=== PATIENT | female | born 1955 | race Caucasian/White ===

== ENCOUNTER → 2017-07-15 | Outpatient (CLI) | payer OTHER ==
[~2017-07-15] MED LIST: BUPR100 PO; Prinivil5 MG PO
== END | disposition home or self-care (01) ==
LOC: PLD 07:53 → LAB SHORT 07:53
DX: C44.519 Basal cell carcinoma of skin of other part of trunk (principal)
CPT/HCPCS: 88305

== ENCOUNTER → 2017-12-04 | Outpatient (CLI) | payer OTHER | LOC: LAB SHORT 17:15 → LAB EV 17:15 | DX: R31.9 Hematuria, unspecified (principal) | CPT/HCPCS: 87086 ==

== ENCOUNTER 2018-04-29 11:18 | Emergency (ER) | payer OTHER ==
[~2018-04-29] VITALS: Ht 165.1 cm; Wt 84.4 kg
[2018-04-29] MEDS ORDERED: BUPR100 PO (14:32)
[2018-04-29] MEDS ORDERED: Prinivil5 MG PO (14:32)
== END 2018-04-29 14:44 | disposition home or self-care (01) ==
LOC: ER 11:18
DX: F32.9 Major depressive disorder, single episode, unspecified (principal); I10 Essential (primary) hypertension; Z79.899 Other long term (current) drug therapy; Z87.891 Personal history of nicotine dependence
CPT/HCPCS: 99283

== ENCOUNTER 2018-06-30 03:07 | Emergency (ER) | payer OTHER ==
[~2018-06-30] VITALS: Ht 167.6 cm; Wt 81.7 kg
[2018-06-30 03:54] LABS: BASOPHILS ABSOLUTE AUTO 0.06 K/mm3 (0.00-0.23); BASOPHILS PERCENT AUTO 1 % (0-2); EOSINOPHILS ABSOLUTE AUTO 0.19 K/mm3 (0.00-0.68); EOSINOPHILS PERCENT AUTO 3 % (0-6); Hemoglobin 14.8 g/dL (11.5-16.0); IMMATURE GRAN ABSOLUTE AUTO 0.02 K/mm3 (0.00-0.10); IMMATURE GRAN PERCENT AUTO 0 % (0-1); LYMPHOCYTES ABSOLUTE AUTO 1.64 K/mm3 (0.84-5.20); LYMPHOCYTES PERCENT AUTO 22 % (21-46); MONOCYTES ABSOLUTE AUTO 0.66 K/mm3 (0.16-1.47); MONOCYTES PERCENT AUTO 9 % (4-13); Mean Corpuscular HGB 31.3 pg (26.0-34.0); Mean Corpuscular HGB Conc 32.2 g/dL (31.5-36.5); Mean Corpuscular Volume 97 fL (80-100); Mean Platelet Volume 9.6 fL (9.1-12.4); NEUTROPHILS ABSOLUTE AUTO 4.94 K/mm3 (1.96-9.15); NEUTROPHILS PERCENT AUTO 66 % (41-73); Platelet Count 208 K/mm3 (150-400); RDW Coefficient Variation 12.2 % (11.7-14.2); RDW Standard Deviation 44.2 fL (35.1-46.3); Red Blood Cell Count 4.73 M/mm3 (3.80-5.20); White Blood Cell Count 7.51 K/mm3 (4.00-11.30)
[2018-06-30 04:11] LABS: Influenza A Negative (NEGATIVE); Influenza B Negative (NEGATIVE)
[2018-06-30 04:14] LABS: Alanine Aminotransfer (ALT/SGP 36 U/L (12-78); Albumin, Blood 3.8 g/dL (3.4-5.0); Albumin/Globulin Ratio 1.1 (0.8-1.8); Alk Phos 86 U/L (50-136); Anion Gap 6 mmol/L (6-16); Aspartate Aminotrans (AST/SGOT 29 U/L (12-37); Bilirubin, Total 0.5 mg/dL (0.1-1.0); Blood Urea Nitrogen 11 mg/dL (8-24); Bun/Creatinine Ratio 15.3 (12.0-20.0); CO2, Blood 28 mmol/L (21-32); Calcium, Blood 8.7 mg/dL (8.5-10.1); Chloride, Blood 106 mmol/L (98-108); Creatinine, Blood 0.72 mg/dL (0.40-1.00); Globulin, Blood 3.4 g/dL (2.2-4.0); Glomerular Filtration Rate >60 (60-); Glucose, Blood 109 mg/dL (70-99); Potassium, Blood 4.3 mmol/L (3.5-5.5); Sodium, Blood 140 mmol/L (136-145); Total Protein, Blood 7.2 g/dL (6.4-8.2); Troponin I <0.015 ng/mL (0.000-0.040)
[2018-06-30] MEDS ORDERED: Prednisone20 MG PO (04:51)
== END 2018-06-30 05:05 | disposition home or self-care (01) ==
LOC: ER 03:07
PROVIDERS: Emergency Medicine
DX: J44.1 Chronic obstructive pulmonary disease with (acute) exacerbation (principal); F17.210 Nicotine dependence, cigarettes, uncomplicated; Z79.899 Other long term (current) drug therapy
CPT/HCPCS: 36415; 71046; 80053; 84484; 85025; 87804; 93005; 93010; 96361; 96374; 99284-25; J2930; J7030

== ENCOUNTER 2018-09-14 12:01 | Emergency (ER) | payer OTHER ==
[~2018-09-14] VITALS: Ht 167.6 cm; Wt 81.7 kg
[~2018-09-14 12:01] MED LIST changes: +Prednisone20 MG PO
[2018-09-14] MEDS ORDERED: Cheratussin AC118 ML PO (13:31)
[2018-09-14] MEDS ORDERED: Zithromax250 MG PO (13:31)
[2018-09-14] MEDS ORDERED: ALBU90OI INH (13:31)
[2018-09-14] MEDS ORDERED: Prednisone20 MG PO (13:31)
== END 2018-09-14 13:40 | disposition home or self-care (01) ==
LOC: ER 12:01
DX: R05 Cough (principal); Z79.899 Other long term (current) drug therapy; F17.200 Nicotine dependence, unspecified, uncomplicated
CPT/HCPCS: 71046; 94640; 99283-25

== ENCOUNTER 2018-10-23 10:38 | Emergency (ER) | payer OTHER ==
[~2018-10-23] VITALS: Ht 170.2 cm; Wt 72.6 kg
[~2018-10-23 10:38] MED LIST changes: +ALBU90OI INH; +Cheratussin AC118 ML PO; +Zithromax250 MG PO
[2018-10-23] MEDS ORDERED: Cheratussin AC118 ML PO (11:13)
[2018-10-23] MEDS ORDERED: Zithromax250 MG PO (11:13)
[2018-10-23] MEDS ORDERED: ALBU90OI INH (11:13)
[2018-10-23] MEDS ORDERED: (None)20 M1 PO (11:16)
== END 2018-10-23 11:19 | disposition home or self-care (01) ==
LOC: ER 10:38
DX: J44.0 Chronic obstructive pulmonary disease with (acute) lower respiratory infection (principal); J20.9 Acute bronchitis, unspecified; Z79.899 Other long term (current) drug therapy; Z79.52 Long term (current) use of systemic steroids; F17.210 Nicotine dependence, cigarettes, uncomplicated
CPT/HCPCS: 99282

== ENCOUNTER 2022-02-21 11:56 | Emergency (ER) | payer MEDICARE, OTHER ==
[~2022-02-21] VITALS: Ht 167.6 cm; Wt 81.7 kg
[~2022-02-21 11:56] MED LIST changes: +(None)20 M1 PO
== END 2022-02-21 12:47 | disposition left against medical advice (07) ==
LOC: ER 11:56
DX: F32.A Depression, unspecified (principal); Z53.21 Procedure and treatment not carried out due to patient leaving prior to being seen by health care provider
CPT/HCPCS: 99281

== ENCOUNTER → 2022-05-12 | Outpatient (CLI) | payer MEDICARE, OTHER | END | disposition home or self-care (01) | LOC: LAB SHORT 12:19 | DX: C44.329 Squamous cell carcinoma of skin of other parts of face (principal); C44.319 Basal cell carcinoma of skin of other parts of face; C44.212 Basal cell carcinoma of skin of right ear and external auricular canal; L82.1 Other seborrheic keratosis | CPT/HCPCS: 88305 ==

== ENCOUNTER → 2022-06-02 | Outpatient (CLI) | payer MEDICARE, OTHER | END | disposition home or self-care (01) | LOC: LAB SHORT 14:44 | DX: C44.1192 Basal cell carcinoma of skin of left lower eyelid, including canthus (principal) | CPT/HCPCS: 88305 ==